=== PATIENT | male | born 1950 | race Two or more races ===

== ENCOUNTER 2022-09-28 10:05 | Outpatient (CLI) | payer OTHER | END 2022-09-28 10:09 | disposition home or self-care (01) | LOC: RAD 10:05 | DX: Z01.811 Encounter for preprocedural respiratory examination (principal) ==

== ENCOUNTER → 2022-11-23 | Outpatient (CLI) | payer OTHER | END | disposition home or self-care (01) | LOC: RAD 08:11 | PROVIDERS: ATTEND Internal Medicine Rheumatology | DX: M15.8 Other polyosteoarthritis (principal); R20.2 Paresthesia of skin ==